=== PATIENT | female | born 1980 | race Caucasian/White ===

== ENCOUNTER → 2017-06-06 | Outpatient (REF) | payer OTHER ==
[~2017-06-06] MED LIST: DOCU10CA PO; IBUP80TA PO; PRENTAB40 PO
== END ==
LOC: M SFHCCLAY 07:27
PROVIDERS: ATTEND Family Medicine
DX: Z12.4 Encounter for screening for malignant neoplasm of cervix (principal)

== ENCOUNTER → 2017-07-06 | Outpatient (CLI) | payer OTHER ==
--- NOTE | 2017-07-06 10:05 | REP ---
Bilateral screening digital mammogram, baseline study: There are no palpable abnormalities or other breast complaints. The patient states she had a clinical breast exam in 05/2017. There are no comparisons. This is a baseline study. There is dense heterogeneous breast parenchyma. There is no dominant mass, microcalcific cluster, or architectural distortion that would indicate malignancy. Impression: There is no evidence of malignancy. BIRADS category 1 negative mammogram. The patient should have a repeat mammogram in 1 year. This mammogram was interpreted with the aid of an FDA-approved computer-aided detection system. A. Negative x-ray reports should not delay biopsy if a dominant or clinically suspicious mass is present. B. Not all breast cancers are identified by x-ray. C. Adenosis and dense breasts may obscure an underlying neoplasm. The patient letter being requested is M1 dense breasts.
== END ==
LOC: M WHC 08:02
PROVIDERS: ATTEND Family Medicine
DX: Z12.31 Encounter for screening mammogram for malignant neoplasm of breast (principal)

== ENCOUNTER → 2017-12-10 | Outpatient (REF) | payer OTHER ==
[2017-12-09 19:29] LABS: APPEARANCE, URINE TURBID (CLEAR); BACTERIA, URINE AUTO 3+ (NEGATIVE); BILIRUBIN, URINE AUTO NEGATIVE (NEGATIVE); BLOOD, URINE BLOOD 2+ (NEGATIVE); COLOR, URINE YELLOW (YELLOW); GLUCOSE, URINE (UA) AUTO NEGATIVE (NEGATIVE); KETONE, URINE AUTO NEGATIVE (NEGATIVE); LEUKOCYTE ESTERASE, URINE AUTO 2+ (NEGATIVE); MUCUS, URINE SMALL (NEGATIVE); NITRITE, URINE AUTO NEGATIVE (NEGATIVE); PROTEIN, URINE AUTO 1+ mg/dL (NEGATIVE); RBC, URINE AUTO 34 /HPF (0-3); SQUAMOUS EPITHELIAL CELL UR AU 3 /HPF (0-6); UROBILINOGEN, URINE AUTO 0.2 mg/dL (0.0-2.0); WBC, URINE AUTO TNTC /HPF (0-3)
== END ==
LOC: M LAB REF 09:09
DX: N39.0 Urinary tract infection, site not specified (principal)
CPT/HCPCS: 81001

== ENCOUNTER 2018-09-20 09:29 | Emergency (ER) | payer OTHER ==
[~2018-09-20] VITALS: Ht 172.7 cm; Wt 66.9 kg
[2018-09-20 11:36] LABS: BASO % 0.3 % (0.0-1.0); EOS % 0.2 % (0.0-3.0); HEMATOCRIT 39.4 % (36.0-47.0); HEMOGLOBIN 13.4 g/dl (12.0-15.5); LYMPH # 1.2 10^3/uL (1.5-4.5); LYMPH % 12.5 % (24.0-44.0); MEAN CORPUSCULAR HEMOGLOBIN 30.3 pg (27.0-33.0); MEAN CORPUSCULAR VOLUME 89.1 fl (80.0-96.0); MONO # 0.5 10^3/uL (0.0-0.8); MONO % 4.8 % (0.0-5.0); NEUTROPHILS % 81.6 % (36.0-66.0); PLATELET COUNT, AUTOMATED 293 10^3/uL (150-450); RED BLOOD COUNT 4.42 10^6/uL (4.00-5.40); WHITE BLOOD COUNT 9.8 10^3/uL (4.0-10.0)
[2018-09-20] MEDS ORDERED: RHOGAM 300 MCG (1500 IU) INJ (J2790) IM ONE (13:00)
[2018-09-20 13:14] LABS: CHLAMYDIA DNA AMPLIFICATION NEGATIVE (NEGATIVE); GC DNA AMPLIFICATION NEGATIVE (NEGATIVE)
[2018-09-20 13:42] VITALS: BP 115/68
--- NOTE | 2018-09-20 14:59 | REP ---
Emergency first trimester obstetric sonography: History: Vaginal bleeding. Findings: Transabdominal and transvaginal scanning are performed. An intrauterine sac is seen without identifiable yolk sac or embryonic pole. By mean sac size diameter of 7.7 mm this would correspond with a gestational age estimate 5 weeks 4 days. No evidence of free fluid in the cul-de-sac. Right ovary measures 2.0 x 1.4 x 2.8 cm. Left ovary measures 3.0 x 1.9 x 2.4 cm. In the left ovary there is a 1.8 x 2.5 x 1.7 cm hypoechoic cystic structure consistent with hemorrhagic cyst. Impression: Intrauterine gestational sac 7-sfiu-4-day size. No identifiable embryonic pole or yolk sac. This is nonspecific. Clinical and possibly sonographic followup is recommended. No free fluid or adnexal mass lesions seen. Electronically Signed by Ga Pennington MD 09/20/2018 05:23 P
== END 2018-09-20 13:59 | disposition home or self-care (01) ==
LOC: M ED 09:29
DX: O20.0 Threatened abortion (principal); Z3A.01 Less than 8 weeks gestation of pregnancy
CPT/HCPCS: 36415; 76801; 76817; 81001; 84702; 85025; 86850; 86900; 86901; 87210; 87491; 87591; 93976; 96372; 99284; J2790

== ENCOUNTER → 2018-09-22 | Outpatient (CLI) | payer OTHER | LOC: M LAB 11:30 | PROVIDERS: ATTEND Nurse Practitioner Family | DX: Z32.00 Encounter for pregnancy test, result unknown (principal) ==

== ENCOUNTER → 2018-10-01 | Outpatient (REF) | payer OTHER | LOC: M LABDRAWC 16:08 | PROVIDERS: ATTEND Obstetrics & Gynecology | DX: O03.9 Complete or unspecified spontaneous abortion without complication (principal) ==

== ENCOUNTER → 2018-10-09 | Outpatient (REF) | payer OTHER | LOC: M SFHCCLAY 08:19 | PROVIDERS: ATTEND Family Medicine | DX: F32.2 Major depressive disorder, single episode, severe without psychotic features (principal); F41.9 Anxiety disorder, unspecified; R00.2 Palpitations ==

== ENCOUNTER → 2018-11-15 | Outpatient (REF) | payer OTHER | LOC: M LABDRAWC 17:23 | PROVIDERS: ATTEND Obstetrics & Gynecology | DX: Z32.01 Encounter for pregnancy test, result positive (principal) ==

== ENCOUNTER → 2018-11-17 | Outpatient (CLI) | payer OTHER | LOC: M LRY 09:09 | PROVIDERS: ATTEND Obstetrics & Gynecology | DX: Z32.01 Encounter for pregnancy test, result positive (principal) ==

== ENCOUNTER 2018-11-30 17:59 | Emergency (ER) | payer OTHER ==
[~2018-11-30] VITALS: Ht 172.7 cm; Wt 65.9 kg
[2018-11-30 19:31] VITALS: BP 128/79
== END 2018-11-30 19:34 | disposition home or self-care (01) ==
LOC: M ED 17:59
DX: O26.851 Spotting complicating pregnancy, first trimester (principal); O30.91 Multiple gestation, unspecified, first trimester; O09.521 Supervision of elderly multigravida, first trimester; Z3A.01 Less than 8 weeks gestation of pregnancy; Z79.899 Other long term (current) drug therapy

== ENCOUNTER → 2018-12-06 | Outpatient (REF) | payer OTHER ==
[2018-12-06 18:22] LABS: BASO % 0.4 % (0.0-1.0); EOS % 0.2 % (0.0-3.0); HEMATOCRIT 40.1 % (36.0-47.0); HEMOGLOBIN 13.4 g/dl (12.0-15.5); LYMPH # 1.7 10^3/uL (1.5-4.5); LYMPH % 20.7 % (24.0-44.0); MEAN CORPUSCULAR HEMOGLOBIN 30.7 pg (27.0-33.0); MEAN CORPUSCULAR HGB CONC 33.4 g/dl (32.0-36.5); MONO # 0.5 10^3/uL (0.0-0.8); MONO % 5.9 % (0.0-5.0); NEUTROPHILS # 5.8 10^3/uL (1.8-7.7); NEUTROPHILS % 72.3 % (36.0-66.0); PLATELET COUNT, AUTOMATED 298 10^3/uL (150-450); RED BLOOD COUNT 4.36 10^6/uL (4.00-5.40); WHITE BLOOD COUNT 8.1 10^3/uL (4.0-10.0)
[2018-12-06 19:43] LABS: CHLAMYDIA DNA AMPLIFICATION NEGATIVE (NEGATIVE); GC DNA AMPLIFICATION NEGATIVE (NEGATIVE)
[2018-12-07 08:29] LABS: HEPATITIS C VIRUS ABY INDEX 0.1 INDEX (<0.8); HIV 1&2 SCREEN CENTAUR NEGATIVE (NEGATIVE); RUBELLA IgG QUALITATIVE IMMUNE (IMMUNE)
== END ==
LOC: M LABDRWCV 16:58
PROVIDERS: ATTEND Specialist
DX: Z3A.08 8 weeks gestation of pregnancy (principal); Z34.81 Encounter for supervision of other normal pregnancy, first trimester

== ENCOUNTER 2019-02-09 11:04 | Emergency (ER) | payer OTHER ==
[~2019-02-09] VITALS: Ht 172.7 cm; Wt 72.3 kg
[2019-02-09 13:49] VITALS: BP 127/80
--- NOTE | 2019-02-09 13:51 | REP ---
OB ULTRASOUND: Real-time sonographic evaluation of the gravid uterus is performed utilizing transabdominal and endovaginal technique. There is a single living intrauterine gestation. The estimated gestational age is 17 weeks 3 days. EDC 07/17/2019. Today's measurements indicate appropriate growth. BPD 37 mm = 17 weeks 2 days, 46th percentile HC 132 mm 16 weeks 5 days, 26th percentile. AC 120 mm 17 weeks 5 days, 58th percentile. FL 22 mm 16 weeks 3 days, 19th percentile. HC/AC ratio 1.10 within normal range. Estimated weight 180 grams, 33rd percentile. heart rate 157 beats per minute. SEEN/GROSSLY UNREMARKABLE Lateral ventricles Yes Posterior fossa Yes Upper lip Yes Four-chamber heart Yes LVOT Yes RVOT Yes Stomach Yes Cord insertion No Three vessel cord Yes Kidneys No Bladder Yes Spine No position: Variable. Placenta: Anterior and grade 0 with no abruption. There does appear to be complete placenta previa. Amniotic fluid: Within normal limits. Cervix is closed and measures 4.7 cm in length. No maternal adnexal region abnormality is seen. Patient reports that this was a documented twin , but only one fetus has developed by today's exam. There appears to be residual sac from the undeveloped twin on the right. Electronically Signed by Prashant Reis MD 02/09/2019 07:38 P
== END 2019-02-09 13:50 | disposition home or self-care (01) ==
LOC: M ED 11:04
DX: O44.02 Complete placenta previa NOS or without hemorrhage, second trimester (principal); Z3A.17 17 weeks gestation of pregnancy

== ENCOUNTER → 2019-03-21 | Outpatient (CLI) | payer OTHER ==
--- NOTE | 2019-03-25 13:06 | REP ---
Clinical: Anatomical evaluation. Comparison: 02/09/2019 . Findings: Examination demonstrates a single live intrauterine in cephalic presentation. motion is identified by technologist. Placenta is noted anterior and grade zero without evidence for placenta previa or abruption. Amniotic fluid volume is normal. Cervix measures 4.6 cm in length and appears closed. No evidence for nuchal cord. Gestational age by LMP 23 weeks 1 day with DHRUV 07/17/2019 . Gestational age by current measurements 23 weeks 6 days with DHRUV 07/12/2019 . FHR equals 163 beats per minute. Estimated weight 612 grams ( 61st percentile). Anatomical assessment demonstrates normal structures including cranium, choroid plexus, cavum, cerebellum/posterior fossa, facial features, lungs, four-chamber heart/ventricular outflow tracts, diaphragm, stomach, cord insertion/three-vessel cord, bladder, spine, and extremities. Moderate bilateral hydronephrosis is appreciated. The right renal pelvis measures 7.9 mm diameter and the left renal pelvis measures 9.1 mm diameter. Impression: 1. Single live intrauterine in cephalic presentation demonstrating appropriate interval growth. 2. Moderate bilateral hydronephrosis. Remainder of the anatomical assessment appears normal. Electronically Signed by Tesfaye Wilder MD 03/25/2019 12:58 P
== END ==
LOC: M RAD 10:09
PROVIDERS: ATTEND Specialist
DX: O09.522 Supervision of elderly multigravida, second trimester (principal); Z3A.23 23 weeks gestation of pregnancy; Z36.9 Encounter for antenatal screening, unspecified

== ENCOUNTER → 2019-05-03 | Outpatient (CLI) | payer OTHER ==
[2019-05-03 10:51] LABS: BASO % 0.3 % (0.0-1.0); EOS % 0.4 % (0.0-3.0); HEMATOCRIT 37.4 % (36.0-47.0); HEMOGLOBIN 12.6 g/dl (12.0-15.5); LYMPH # 1.2 10^3/uL (1.5-5.0); LYMPH % 13.4 % (24.0-44.0); MEAN CORPUSCULAR HEMOGLOBIN 31.3 pg (27.0-33.0); MEAN CORPUSCULAR HGB CONC 33.7 g/dl (32.0-36.5); MONO # 0.4 10^3/uL (0.0-0.8); MONO % 4.6 % (0.0-5.0); NEUTROPHILS # 7.4 10^3/uL (1.5-8.5); NEUTROPHILS % 79.9 % (36.0-66.0); PLATELET COUNT, AUTOMATED 234 10^3/uL (150-450); RED BLOOD COUNT 4.02 10^6/uL (4.00-5.40); WHITE BLOOD COUNT 9.2 10^3/uL (4.0-10.0)
== END ==
LOC: M LAB 08:59
PROVIDERS: ATTEND Specialist
DX: O09.512 Supervision of elderly primigravida, second trimester (principal)

== ENCOUNTER → 2019-05-23 | Outpatient (CLI) | payer OTHER ==
[~2019-05-23] MED LIST changes: +ACET-683 PO; +PRIL20TA2 PO
--- NOTE | 2019-05-24 02:50 | REP ---
Clinical: Anatomical evaluation. Comparison: 03/21/2019 . Findings: Examination demonstrates a single live intrauterine in cephalic presentation. motion is identified by technologist. Placenta is noted anterior and grade one without evidence for placenta previa or abruption. Amniotic fluid volume is normal. Cervix measures 3.3 cm in length and appears closed. Nuchal cord cannot be excluded. Gestational age by LMP 32 weeks 1 day with DHRUV 07/17/2019 . Gestational age by current measurements 32 weeks 6 days with DHRUV is 07/12/2019 . FHR equals 156 beats per minute. Amniotic fluid index: 16.4 cm (8.6 - 24.2) Umbilical cord SD ratio: 2.51 (2.45 - 3.45). Estimated weight 2244 grams ( 76th percentile). Kidneys demonstrate mild bilateral hydronephrosis. The right renal pelvis measures 11 mm in width while the left renal pelvis measures 10 mm in width. Remainder of the anatomical assessment is grossly unremarkable. Bladder appears normal. Impression: 1. Single live advanced gestation in cephalic presentation. Nuchal cord cannot be excluded. 2. Mild/early hydronephrosis warrants reevaluation and follow-up. Electronically Signed by Tesfaye Wilder MD 05/24/2019 02:42 A
== END ==
LOC: M RAD 16:56
PROVIDERS: ATTEND Specialist
DX: Z34.82 Encounter for supervision of other normal pregnancy, second trimester (principal)

== ENCOUNTER 2019-05-25 11:39 | Outpatient (CLI) | payer OTHER ==
[~2019-05-25] VITALS: Ht 172.7 cm; Wt 82.0 kg
[~2019-05-25 11:39] MED LIST changes: -ACET-683 PO; -PRIL20TA2 PO
[2019-05-25 12:03] VITALS: BP 119/71
[2019-05-25] MEDS ORDERED: ACET-683 PO (12:15)
[2019-05-25] MEDS ORDERED: PRIL20TA2 PO (12:15)
[2019-05-25] MEDS ORDERED: LACTATED RINGER'S 1000 ML IV STA (12:23)
[2019-05-25] MEDS ORDERED: FIORICET TAB PO ONE (12:45)
[2019-05-25 13:56] VITALS: BP 116/61
[2019-05-25 15:11] VITALS: BP 112/59
== END 2019-05-25 16:23 | disposition home or self-care (01) ==
LOC: M LDO 11:39
PROVIDERS: ATTEND Obstetrics & Gynecology
DX: O26.893 Other specified pregnancy related conditions, third trimester (principal); R42 Dizziness and giddiness; O36.8193 Decreased fetal movements, unspecified trimester, fetus 3; Z3A.31 31 weeks gestation of pregnancy

== ENCOUNTER → 2019-07-02 | Outpatient (CLI) | payer OTHER ==
[~2019-07-02] MED LIST changes: +ACET-683 PO; +PRIL20TA2 PO
--- NOTE | 2019-07-03 05:07 | REP ---
Clinical: Anatomical evaluation. Comparison: 05/23/2019 . Findings: Examination demonstrates a single live intrauterine in cephalic presentation. motion is identified by technologist. Placenta is noted anterior and grade zero without evidence for placenta previa or abruption. Amniotic fluid volume is normal. Cervix measures 3.2 cm in length and appears closed. No evidence for nuchal cord. Gestational age by LMP 37 weeks 6 days with DHRUV 07/17/2019 . Gestational age by current measurements 37 weeks 6 days with DHRUV 07/17/2019 . FHR equals 139 beats per minute. Biophysical profile score: 8/8 Estimated weight 3667 grams ( 76 percentile). Amniotic fluid index: 14.7 cm Umbilical cord SD ratio: 2.30 Anatomical assessment again demonstrates mild bilateral hydronephrosis. The right renal pelvis measures 1.7 cm. The left renal pelvis measures 1.3 cm Impression: Biophysical profile score normal. Mild bilateral renal hydronephrosis again noted. Electronically Signed by Tesfaye Wilder MD 07/03/2019 04:59 A
== END ==
LOC: M RAD 14:13
PROVIDERS: ATTEND Obstetrics & Gynecology
DX: Z34.82 Encounter for supervision of other normal pregnancy, second trimester (principal)

== ENCOUNTER → 2019-07-02 | Outpatient (REF) | payer OTHER | LOC: M LAB REF 17:06 | PROVIDERS: ATTEND Specialist | DX: O09.523 Supervision of elderly multigravida, third trimester (principal); Z3A.00 Weeks of gestation of pregnancy not specified ==

== ENCOUNTER 2019-07-10 12:50 | Inpatient (IN) | payer OTHER ==
[~2019-07-10] VITALS: Ht 172.7 cm; Wt 85.5 kg
[2019-07-10] MEDS ORDERED: LR 1,000 ML IV SCH ×2 (12:55→19:30)
[2019-07-10] MEDS ORDERED: LACTATED RINGER'S 1000 ML IV ONE (13:00)
[2019-07-10] MEDS ORDERED: ceFAZolin SOD 2 GM in IV 1 EA IV ONE (13:00)
[2019-07-10] MEDS ORDERED: BICITRA 30ML SOLN UDC PO ONE (13:00)
[2019-07-10] MEDS ORDERED: FIORCAP3 PO (13:12)
[2019-07-10 13:21] VITALS: BP 139/77
[2019-07-10 14:18] LABS: HEMATOCRIT 39.5 % (36.0-47.0); HEMOGLOBIN 13.2 g/dl (12.0-15.5); MEAN CORPUSCULAR HEMOGLOBIN 31.4 pg (27.0-33.0); MEAN CORPUSCULAR HGB CONC 33.4 g/dl (32.0-36.5); MEAN CORPUSCULAR VOLUME 93.8 fl (80.0-96.0); PLATELET COUNT, AUTOMATED 224 10^3/uL (150-450); RED BLOOD COUNT 4.21 10^6/uL (4.00-5.40); WHITE BLOOD COUNT 8.6 10^3/uL (4.0-10.0)
[2019-07-10 14:35] LABS: TOTAL PROTEIN,RANDOM URINE 38.1 MG/DL (0.0-12.0)
[2019-07-10 14:39] LABS: ALT/SGPT 13 U/L (12-78); BILIRUBIN,TOTAL 0.5 MG/DL (0.2-1.0); CREATININE FOR GFR 0.69 MG/DL (0.55-1.30); GLOMERULAR FILTRATION RATE > 60.0 (>60); LDH LACTATE DEHYDROGENASE 120 U/L (84-246); URIC ACID 5.6 MG/DL (2.6-6.0)
--- NOTE | 2019-07-10 15:13 | HPE ---
DATE OF ADMISSION: 07/10/2019 This is a 38-year-old, 3, para 1-0-1-1, at 37-4/7 weeks gestation, estimated date of confinement (EDC) of 07/27/2019 based on first trimester ultrasound presented to labor and delivery following a visit in the office where she had complained of severe headache times 3 days unresolved with the Fioricet hydration and nutrition as well as rest. She reports decreased movement and decreased urinary output. She denies vaginal bleeding and leakage of fluid. care was initiated at [facility] in the first trimester. course complicated by prior section, advanced maternal age, mitral valve prolapse where she had an echo that was performed on December of 2018 that was unchanged, and bilateral hydronephrosis. Today's presentation of gestational hypertension. OBSTETRICAL HISTORY: April 2014, 38 weeks gestation, she underwent a primary section due to severe anxiety and paroxysmal tachycardia. August 2018, spontaneous miscarriage. OBSTETRIC LABS: O negative. Initial antibody was positive for anti-D, rubella immune, [facility] ([facility]) nonreactive. Urine culture no growth. Hepatitis B surface antigen negative. HIV negative. Hepatitis C antibody nonreactive. Gonorrhea and chlamydia negative. It does not appear that she had genetic labs for triploidy performed. Gestational diabetic screening normal at 95. Third trimester hemoglobin 12.6, hematocrit 37.4. Group B streptococcus (GBS) is negative. PAST MEDICAL HISTORY: 1. Seasonal allergies. 2. Anxiety. 3. Childhood varicella. SURGERIES: Prior section. FAMILY HISTORY: Diabetes. SOCIAL HISTORY: The patient is single, however, the father of the baby is at bedside. She is a nonsmoker. She denies alcohol and drug use. No history of sexually transmitted infections and denies history of abuse physical, sexual and emotional. ALLERGIES: NO DRUG ALLERGIES. CURRENT MEDICATIONS: - 50/325 - omeprazole 40 mg - Zofran 4 mg - vitamin OBJECTIVE: In the office, she was noted to have elevated blood pressures 2 days in row in the 140s/80s. Vital signs upon arrival to labor delivery, temperature 98.5, pulse 79, respirations 18, blood pressure (BP) 139/77. She is 98% on room air pulse ox. heart rate is 140 with moderate variability, positive accelerations, no decelerations. Contractions every 4-6 minutes. Pre-eclamptic labs have been returned. She has a hemoglobin of 13.2, hematocrit 39.5, platelets 224. Her AST is 12, ALT 13, LDH 120, uric acid 5.6. Her spot urine for protein is 0.27. ASSESSMENT: Intrauterine at 37-4/7 weeks, heart rate is category 1, gestational hypertension. PLAN: Per consult with Dr. Paula, admit the patient to labor and delivery, plan for repeat section with bilateral tubal ligation as prior planned for 39 weeks. The patient has been consented for surgery and blood products if necessary. IV access planned for prophylactic surgical antibiotics. Risks, benefits, and alternatives have been reviewed and the patient and her 's questions have been answered.
[2019-07-10 15:49] VITALS: BP 131/63
[2019-07-10] MEDS ORDERED: MORPHINE PRES-FREE INJ 10 MG/10 ML VIAL (J2274) As Ordered ONE (17:00)
[2019-07-10] MEDS ORDERED: ONDANSETRON 4MG/2ML VIAL (J2405) IV PRN ×3 (17:42→19:30)
[2019-07-10] MEDS ORDERED: NALBUPHINE HCL 10 MG/ML AMP (J2300) IV PRN ×2 (17:42→19:30)
[2019-07-10] MEDS ORDERED: NALOXONE INJ 0.4 MG/1 ML VIAL (J2310) IV PRN ×2 (17:42)
[2019-07-10] MEDS ORDERED: diphenhydrAMINE INJ 50MG/ML VIAL (J1200) IV PRN (17:42)
[2019-07-10] MEDS ORDERED: METOCLOPRAMIDE INJ 10MG/2ML VIAL (J2765) IV PRN ×2 (17:42→19:30)
[2019-07-10] MEDS ORDERED: ONDANSETRON 4MG/2ML VIAL (J2405) As Ordered ONE (17:51)
[2019-07-10] MEDS ORDERED: OXYTOCIN INJ 10 UNITS/ML VIAL (J2590) As Ordered ONE (17:52)
[2019-07-10] MEDS ORDERED: KETOROLAC 60 MG/2 ML VIAL (J1885) As Ordered ONE (17:52)
[2019-07-10] MEDS ORDERED: OXYTOCIN DRIP 30 UNITS in IV 1 EA IV SCH (19:01)
[2019-07-10] MEDS ORDERED: OXYC1TAB23 PO (19:06)
[2019-07-10] MEDS ORDERED: IBUP80TA PO (19:07)
[2019-07-10] MEDS ORDERED: DOCU100C16 PO (19:07)
[2019-07-10] MEDS ORDERED: RHOGAM 300 MCG (1500 IU) INJ (J2790) IM SCH (19:15)
[2019-07-10] MEDS ORDERED: MEASLES,MUMPS,RUBELLA VACCINE INJ (MMR-II) (90707) SC SCH (19:15)
[2019-07-10] MEDS ORDERED: PROMETHAZINE 25 MG TAB PO PRN (19:15)
[2019-07-10] MEDS ORDERED: ACETAMINOPHEN 500 MG TAB PO PRN (19:15)
[2019-07-10] MEDS ORDERED: PERCOCET 5MG/325MG TAB PO PRN ×2 (19:15→19:30)
[2019-07-10] MEDS ORDERED: OXYTOCIN 30 UNITS IN 0.9% NaCl 500ML IV BAG (J2590) As Ordered ONE (19:18)
[2019-07-10] MEDS ORDERED: KETOROLAC 30 MG/ML VIAL (J1885) IV PRN (19:30)
[2019-07-10] MEDS ORDERED: fentaNYL 100 MCG/2 ML INJECTION (J3010) IV PRN (19:30)
[2019-07-10] MEDS: LR 1,000 ML IV SCH (19:59)
[2019-07-10] MEDS: DOCUSATE SODIUM 100 MG CAP PO SCH (21:00)
[2019-07-10 21:03] VITALS: BP 111/66
[2019-07-10 21:30] VITALS: BP 120/61
[2019-07-10 23:30] VITALS: BP 129/59
[2019-07-11] VITALS (7 sets, daily range): BP systolic 110–128; BP diastolic 53–78
[2019-07-11] MEDS ORDERED: KETOROLAC 30 MG/ML VIAL (J1885) IV SCH
[2019-07-11] MEDS: LR 1,000 ML IV SCH ×2 (03:01→21:30)
[2019-07-11] MEDS: KETOROLAC 30 MG/ML VIAL (J1885) IV SCH ×3 (06:09→17:52)
[2019-07-11 07:19] LABS: HEMOGLOBIN 11.5 g/dl (12.0-15.5); MEAN CORPUSCULAR HEMOGLOBIN 31.9 pg (27.0-33.0); MEAN CORPUSCULAR HGB CONC 33.8 g/dl (32.0-36.5); MEAN CORPUSCULAR VOLUME 94.2 fl (80.0-96.0); PLATELET COUNT, AUTOMATED 173 10^3/uL (150-450); RED BLOOD COUNT 3.61 10^6/uL (4.00-5.40); WHITE BLOOD COUNT 9.4 10^3/uL (4.0-10.0)
[2019-07-11] MEDS: PRENATAL VITAMINS CHEWABLE TABLET PO SCH (10:18)
[2019-07-11] MEDS: DOCUSATE SODIUM 100 MG CAP PO SCH ×2 (10:18→21:31)
[2019-07-12] MEDS: IBUPROFEN 800 MG TAB PO SCH ×2 (02:12→10:12)
[2019-07-12 02:27] VITALS: BP 118/67
[2019-07-12 06:20] VITALS: BP 111/65
[2019-07-12] MEDS: PRENATAL VITAMINS CHEWABLE TABLET PO SCH (10:11)
[2019-07-12] MEDS: DOCUSATE SODIUM 100 MG CAP PO SCH (10:11)
== END 2019-07-12 14:30 | disposition home or self-care (01) | DRG 540 ==
LOC: M LDI 12:50 → M OBS 20:51
PROVIDERS: ADMIT Obstetrics & Gynecology; ATTEND Obstetrics & Gynecology
PROC: 0UB70ZZ Excision of Bilateral Fallopian Tubes, Open Approach (ICD-10-PCS; 2019-07-10)
PROC: 10D00Z1 Extraction of Products of Conception, Low, Open Approach (ICD-10-PCS; principal; 2019-07-10 19:04)
DX: O13.4 Gestational [pregnancy-induced] hypertension without significant proteinuria, complicating childbirth (principal); O34.211 Maternal care for low transverse scar from previous cesarean delivery; Z3A.37 37 weeks gestation of pregnancy; Z30.2 Encounter for sterilization; Z37.0 Single live birth

== ENCOUNTER → 2019-11-12 | Outpatient (REF) | payer OTHER, MEDICAID ==
[~2019-11-12] MED LIST changes: +DOCU100C16 PO; +FIORCAP3 PO; +OXYC1TAB23 PO
== END ==
LOC: M SFHCCLAY 07:05
PROVIDERS: ATTEND Family Medicine
DX: F32.9 Major depressive disorder, single episode, unspecified (principal); F41.9 Anxiety disorder, unspecified; R00.2 Palpitations

== ENCOUNTER 2020-05-06 09:31 | Emergency (ER) | payer MEDICAID, OTHER ==
[~2020-05-06] VITALS: Ht 172.7 cm; Wt 63.6 kg
[2020-05-06] MEDS ORDERED: NS 1,000 ML IV SCH (09:54)
[2020-05-06] MEDS ORDERED: GI COCKTAIL 50ML BTL(HYOSCYAMINE/MAALOX/LIDOCAINE VISCOUS)(1:3:1) PO ONE (10:00)
[2020-05-06 10:26] LABS: BASO % 0.2 % (0.0-1.0); EOS % 0.1 % (0.0-3.0); HEMATOCRIT 37.5 % (36.0-47.0); HEMOGLOBIN 12.7 g/dl (12.0-15.5); LYMPH # 0.7 10^3/uL (1.5-5.0); LYMPH % 3.5 % (24.0-44.0); MEAN CORPUSCULAR HEMOGLOBIN 30.5 pg (27.0-33.0); MEAN CORPUSCULAR HGB CONC 33.9 g/dl (32.0-36.5); MEAN CORPUSCULAR VOLUME 90.1 fl (80.0-96.0); MONO # 0.5 10^3/uL (0.0-0.8); MONO % 2.4 % (0.0-5.0); NEUTROPHILS # 17.8 10^3/uL (1.5-8.5); NEUTROPHILS % 92.9 % (36.0-66.0); PLATELET COUNT, AUTOMATED 313 10^3/uL (150-450); RED BLOOD COUNT 4.16 10^6/uL (4.00-5.40); WHITE BLOOD COUNT 19.1 10^3/uL (4.0-10.0)
[2020-05-06] MEDS ORDERED: KETOROLAC 30 MG/ML 1ML VIAL IV ONE (10:45)
[2020-05-06 10:46] LABS: ALT/SGPT 17 U/L (12-78); BILIRUBIN,DIRECT 0.1 MG/DL (0.0-0.2); BILIRUBIN,TOTAL 0.5 MG/DL (0.2-1.0); BLOOD UREA NITROGEN 14 MG/DL (7-18); CARBON DIOXIDE LEVEL 26 MEQ/L (21-32); CHLORIDE LEVEL 105 MEQ/L (98-107); CREATININE FOR GFR 0.74 MG/DL (0.55-1.30); GLOMERULAR FILTRATION RATE > 60.0 (>60); GLUCOSE, FASTING 115 MG/DL (70-100); LIPASE 65 U/L (73-393); POTASSIUM SERUM 3.8 MEQ/L (3.5-5.1); SODIUM LEVEL 137 MEQ/L (136-145); TOTAL PROTEIN 7.2 GM/DL (6.4-8.2)
[2020-05-06] MEDS ORDERED: ISOVUE-370 76% 100ML VIAL As Ordered ONE (11:10)
--- NOTE | 2020-05-06 11:47 | REPVR ---
PROCEDURE INFORMATION: Exam: CT Abdomen And Pelvis With Contrast Exam date and time: 05/06/2020 11:21 AM Age: 39 years old Clinical indication: Abdominal pain; Generalized; Additional info: Abd pain TECHNIQUE: Imaging protocol: Computed tomography of the abdomen and pelvis with intravenous contrast. Radiation optimization: All CT scans at this facility use at least one of these dose optimization techniques: automated exposure control; mA and/or kV adjustment per patient size (includes targeted exams where dose is matched to clinical indication); or iterative reconstruction. Contrast material: ISOVUE 370; Contrast volume: 100 ml; Contrast route: INTRAVENOUS (IV); COMPARISON: US OBS FOLL UP OR REPEAT EACH GES 07/02/2019 2:19 PM FINDINGS: Liver: Subtle hyperenhancing 9 mm x 9 mm lesion in the left hepatic lobe. Gallbladder and bile ducts: Normal. No calcified stones. No ductal dilation. Pancreas: Normal. No ductal dilation. Spleen: Normal. No splenomegaly. Adrenals: Normal. No mass. Kidneys and ureters: Mild right renal cortical scarring. Mild right-sided hydroureteronephrosis secondary to an obstructing 2 mm x 2 mm right UVJ calculus. 8 mm right renal cortical hypodensity. 9 mm right renal cortical hypodensity, containing a punctate calcification. These are too small to definitively characterize, but likely represent cysts or calyceal diverticula. Stomach and bowel: Colonic diverticulosis. No evidence of acute diverticulitis. The majority of the colon is nondistended. There appears to be mild diffuse colonic wall thickening. Appendix: No evidence of appendicitis. Intraperitoneal space: Unremarkable. No free air. No significant fluid collection. Vasculature: Unremarkable. No abdominal aortic aneurysm. Lymph nodes: Unremarkable. No enlarged lymph nodes. Bladder: Unremarkable as visualized. Reproductive: Uterus is retroverted and retroflexed. Bones/joints: Unremarkable. No acute fracture. Soft tissues: Incidental umbilical piercing. IMPRESSION: 1. Mild right-sided hydroureteronephrosis secondary to an obstructing 2 mm x 2 mm right UVJ calculus. 2. Subtle hyperenhancing 9 mm left hepatic lobe lesion. This most likely represents an FNH or flash fill hemangioma. Recommend further evaluation with nonemergent multiphasic liver MRI. 3. Mild colitis. 4. Colonic diverticulosis. 5. Mild right renal cortical scarring. Electronically signed by: Ela Loo On 05/06/2020 11:47:08 AM
[2020-05-06] MEDS ORDERED: cefTRIAXone SOD 2 GM in D5W MINI-BAG PLUS 50 ML IV ONE (12:15)
--- NOTE | 2020-05-06 12:58 | ED PDOC ---
Post-Departure Follow-Up dr adler faxed formal report of ct abd/p for fu Ismael Blount MD May 06, 2020 12:57
[2020-05-06 13:15] VITALS: BP 113/56
[2020-05-06] MEDS ORDERED: CIPR-249 PO (13:16)
[2020-05-06] MEDS ORDERED: KETO10TAB PO (13:16)
--- NOTE | 2020-05-17 13:53 | ECGEPIP ---
[facility] - ED Test Date: 2020-05-06 Pat Name: JENNI SUE Department: Room: - Gender: Female [employer]: : 1980 Requested By: Twyla Moncada Order Number: [id number] Reading MD: Twyla Moncada Measurements Intervals [place] Rate: 57 P: 10 SC: 180 QRS: -4 QRSD: 93 T: 70 QT: 483 QTc: 471 Interpretive Statements SINUS BRADYCARDIA POSSIBLE LEFT ATRIAL ENLARGEMENT PROLONGED QT INTERVAL Electronically Signed on 05-17-2020 13:53:13 EDT by Twyla Moncada
== END 2020-05-06 13:41 | disposition home or self-care (01) ==
LOC: M ED 09:31 → EDBD 09:31 → M ED 13:41
DX: N20.1 Calculus of ureter (principal); N39.0 Urinary tract infection, site not specified; K76.89 Other specified diseases of liver; R00.1 Bradycardia, unspecified; K57.30 Diverticulosis of large intestine without perforation or abscess without bleeding
CPT/HCPCS: 74177; 80047; 80048; 80076; 81001; 83690; 84702; 85025; 87088; 87186; 93005; 96365; 96375; 99284; J0696; J1885; Q9967

== ENCOUNTER → 2020-05-21 | Outpatient (REF) | payer OTHER, MEDICAID ==
[~2020-05-21] MED LIST changes: +CIPR-249 PO; +KETO10TAB PO
[2020-05-21 13:01] LABS: APPEARANCE, URINE HAZY (CLEAR); BACTERIA, URINE AUTO NEGATIVE (NEGATIVE); BILIRUBIN, URINE AUTO NEGATIVE (NEGATIVE); BLOOD, URINE BLOOD 2+ (NEGATIVE); COLOR, URINE YELLOW (YELLOW); GLUCOSE, URINE (UA) AUTO NEGATIVE (NEGATIVE); KETONE, URINE AUTO NEGATIVE (NEGATIVE); LEUKOCYTE ESTERASE, URINE AUTO NEGATIVE (NEGATIVE); MUCUS, URINE SMALL (NEGATIVE); NITRITE, URINE AUTO NEGATIVE (NEGATIVE); PROTEIN, URINE AUTO NEGATIVE (NEGATIVE); RBC, URINE AUTO 3 /HPF (0-3); SPECIFIC GRAVITY URINE AUTO 1.018 (1.002-1.035); SQUAMOUS EPITHELIAL CELL UR AU 2 /HPF (0-6); UROBILINOGEN, URINE AUTO 0.2 mg/dL (0.0-2.0); WBC, URINE AUTO 9 /HPF (0-3)
== END ==
LOC: M SMT 11:26
PROVIDERS: ATTEND Nurse Practitioner Women's Health
DX: N20.0 Calculus of kidney (principal); N39.0 Urinary tract infection, site not specified

== ENCOUNTER → 2020-06-02 | Outpatient (CLI) | payer OTHER ==
[~2020-06-02] MED LIST changes: +PROHANCE 279.3MG/ML 15ML VIAL As Ordered ONE
--- NOTE | 2020-06-08 14:56 | REP ---
MRI ABDOMEN WITH AND WITHOUT CONTRAST: 06/02/20 HISTORY: Liver lesion on CT 05/06/20 TECHNIQUE: Multiple sequences obtained in the axial and coronal planes prior to and following the intravenous administration of 12ml ProHance. On pre-contrast images of the liver, no significant signal abnormality is seen. There is mild hepatomegaly, the length of the liver is about 19.2cm. On post- contrast images of the liver a small enhancing nodule is again seen in the left lobe laterally measuring 1cm in diameter. This is only seen in the arterial phase of post-contrast imaging and there is subsequent washout to an isointense appearance compared to the remainder of the liver parenchyma. No other liver mass is seen. The gallbladder is grossly unremarkable. There is no biliary dilatation. Spleen is normal in size with no intrinsic abnormality. The adrenal glands are normal. No pancreatic mass is seen. Left kidney is normal. The right kidney demonstrates focal lateral cortical scarring in the upper pole. There is a cyst measuring 9mm in diameter in the posterior lower pole of the right kidney. The previously noted hydronephrosis seen on the CT of 05/06/20 has resolved. There do appear to be a few ill-defined areas of decreased enhancement in the right kidney which may indicate some degree of pyelonephritis. No suspicious enhancing mass is seen. There is no adenopathy or free fluid in the abdomen. IMPRESSION: 1. As seen on the CT of 05/06/20 there is a 1cm enhancing nodule in the arterial phase of post-contrast imaging, which rapidly washes out of an isointense appearance on the more delayed post-contrast images. This 1cm enhancing nodule is not seen on the prior CT of 06/15/05. I suspect this represents a small flash filling hemangioma or adenoma. Given the patients age I would favor these benign ideologies. Benign ideologies would particularly be favored is the patient has no risk factors for hepatic disease or cancer. If there is a question of increased risk for hepatic disease or cancer, then a follow-up MRI may be obtained in 6-12 months. 2. The right kidney demonstrates resolution of the recently noted hydronephrosis. There is a small cortical scar in the upper pole and a small cyst in the lower pole. There are ill-defined areas of decreased enhancement scattered throughout the right kidney which may indicate some degree of pyelonephritis. [facility]
== END ==
LOC: M RAD 10:08
PROVIDERS: ATTEND Family Medicine
DX: K76.89 Other specified diseases of liver (principal); N28.1 Cyst of kidney, acquired
CPT/HCPCS: 74183; A9576

== ENCOUNTER → 2020-09-03 | Outpatient (REF) | payer OTHER, MEDICAID ==
[~2020-09-03] MED LIST changes: -PROHANCE 279.3MG/ML 15ML VIAL As Ordered ONE
== END ==
LOC: M SFHCWAGY 10:13
PROVIDERS: ATTEND Advanced Practice Midwife
DX: Z12.4 Encounter for screening for malignant neoplasm of cervix (principal); Z77.9 Other contact with and (suspected) exposures hazardous to health; R87.610 Atypical squamous cells of undetermined significance on cytologic smear of cervix (ASC-US)

== ENCOUNTER → 2020-09-09 | Outpatient (REF) | payer OTHER, MEDICAID ==
[2020-09-09 13:01] LABS: HEMATOCRIT 40.4 % (36.0-47.0); HEMOGLOBIN 13.3 g/dl (12.0-15.5); MEAN CORPUSCULAR HEMOGLOBIN 29.3 pg (27.0-33.0); MEAN CORPUSCULAR HGB CONC 32.9 g/dl (32.0-36.5); PLATELET COUNT, AUTOMATED 286 10^3/uL (150-450); RED BLOOD COUNT 4.54 10^6/uL (4.00-5.40); WHITE BLOOD COUNT 6.4 10^3/uL (4.0-10.0)
[2020-09-09 13:27] LABS: HCG, SERUM QUALITATIVE NEGATIVE (NEGATIVE)
[2020-09-09 13:30] LABS: ALBUMIN 4.5 GM/DL (3.2-5.2); ALT/SGPT 23 U/L (12-78); BILIRUBIN,TOTAL 0.6 MG/DL (0.2-1.0); BLOOD UREA NITROGEN 17 MG/DL (7-18); CALCIUM LEVEL 9.3 MG/DL (8.5-10.1); CARBON DIOXIDE LEVEL 26 MEQ/L (21-32); CHLORIDE LEVEL 104 MEQ/L (98-107); CREATININE FOR GFR 0.79 MG/DL (0.55-1.30); FREE T4 0.95 NG/DL (0.76-1.46); GLOMERULAR FILTRATION RATE > 60.0 (>60); GLUCOSE, FASTING 97 MG/DL (70-100); POTASSIUM SERUM 4.1 MEQ/L (3.5-5.1); SODIUM LEVEL 136 MEQ/L (136-145); TOTAL PROTEIN 7.7 GM/DL (6.4-8.2)
== END ==
LOC: M LABDRAWC 11:40
PROVIDERS: ATTEND Advanced Practice Midwife
DX: N92.1 Excessive and frequent menstruation with irregular cycle (principal)

== ENCOUNTER → 2020-09-18 | Outpatient (REF) | payer OTHER, MEDICAID | LOC: M SFHCPLAZ 17:29 | PROVIDERS: ATTEND Advanced Practice Midwife | DX: N93.9 Abnormal uterine and vaginal bleeding, unspecified (principal) ==

== ENCOUNTER → 2020-10-02 | Outpatient (CLI) | payer OTHER ==
--- NOTE | 2020-10-03 04:37 | REP ---
INDICATION: N92.1 EXCESS MENSES COMPARISON: None. TECHNIQUE: Transabdominal pelvic ultrasound followed by transvaginal examination for better evaluation of the endometrium and adnexa with color Doppler evaluation of the ovaries. FINDINGS: Bladder is collapsed. Retroverted uterus measures 9.4 x 4.9 x 5.9. The endometrial complex measures 7.5 mm thickness. The cervix appears mildly thickened and a small amount of endocervical fluid is identified which is otherwise nonspecific in appearance. Bilateral ovaries are normal in appearance and vascularity without evidence for torsion. Right ovary measures 1.5 x 2.0 x 2.1 cm; R I = 0.54. Left ovary measures 2.3 x 2.2 x 1.6 cm; R I = 0.39. No pelvic fluid or adnexal mass lesion. IMPRESSION: 1. Retroverted uterus with small amount of endocervical fluid and mild prominence of the cervix is otherwise nonspecific. 2. Otherwise normal pelvic ultrasound. Normal ovaries. <Electronically signed by Tesfaye Wilder > 10/03/20 [id number]
== END ==
LOC: M WHC 15:50
PROVIDERS: ATTEND Advanced Practice Midwife
DX: N85.4 Malposition of uterus (principal); N92.1 Excessive and frequent menstruation with irregular cycle

== ENCOUNTER → 2020-12-31 | Outpatient (CLI) | payer OTHER ==
--- NOTE | 2020-12-31 17:12 | REPMRS ---
Patient History The patient states she has not had a clinical breast exam in over a year. Patient had first child at age 33. Family history of breast cancer under age 50 in mother, breast cancer under age 50 in paternal aunt. Took hormonal contraceptives for 3 years. Patient states no breast complaints. Patient has signed the MRS history sheet. Digital Woman Screen Mammo: December 31, 2020 - Exam #: [id number] Bilateral CC and MLO view(s) were taken. Technologist: Sabi Crabtree, Technologist Prior study comparison: July 06, 2017, digital woman screen mammo performed at [facility]. FINDINGS: The breast tissue is heterogeneously dense. This may lower the sensitivity of mammography. The Volpara volumetric breast density category is: C. There is a moderate amount of heterogeneously dense fibroglandular tissue which is fairly symmetric. There is no interval development of dominant mass, architectural distortion, or grouped microcalcification typical of malignancy. There has been no change in the appearance of the mammogram from the prior studies. 3-D tomosynthesis shows no additional findings. Assessment: BI-RADS/ACR category 1 mammogram. Negative Mammogram. Recommendation Breast MRI of both breasts in 6 months. Routine screening mammogram of both breasts in 1 year (for women over age 40). This patient's [facility] Lifetime Breast Cancer RIsk is estimated at 33.2 %. This mammogram was interpreted with the aid of an FDA-approved computer-aided dectection system. Electronically Signed By: Robert Pennington MD 12/31/20 1617
== END ==
LOC: M WHC 15:39
PROVIDERS: ATTEND Advanced Practice Midwife
DX: Z12.31 Encounter for screening mammogram for malignant neoplasm of breast (principal); Z80.3 Family history of malignant neoplasm of breast

== ENCOUNTER → 2021-02-05 | Outpatient (CLI) | payer OTHER ==
[~2021-02-05] MED LIST changes: +WELLTAB38 PO
== END ==
LOC: M LABSMTC 14:17
PROVIDERS: ATTEND Anesthesiology
DX: Z01.812 Encounter for preprocedural laboratory examination (principal); Z20.822 Contact with and (suspected) exposure to COVID-19

== ENCOUNTER 2021-02-10 07:05 | Day surgery (SDC) | payer OTHER ==
[~2021-02-10] VITALS: Ht 172.7 cm; Wt 63.9 kg
[~2021-02-10 07:05] MED LIST changes: +LIDOCAINE 1% MDV 20ML VIAL SQ PRN; +LR 1,000 ML IV ONE; +ceFAZolin SOD 2 GM in IV 1 EA IV ONE
[2021-02-10 07:39] LABS: HEMATOCRIT 39.7 % (36.0-47.0); HEMOGLOBIN 13.4 g/dl (12.0-15.5)
[2021-02-10 08:06] LABS: HCG, SERUM QUALITATIVE NEGATIVE (NEGATIVE)
[2021-02-10] MEDS ORDERED: LIDOCAINE 2% INJ 100 MG/5 ML SYRINGE As Ordered ONE (08:12)
[2021-02-10] MEDS ORDERED: propofoL 200 MG/20 ML VIAL As Ordered ONE (08:12)
[2021-02-10] MEDS ORDERED: ROCURONIUM BROMIDE 50 MG/5 ML VIAL As Ordered ONE ×3 (08:12→11:53)
[2021-02-10] MEDS ORDERED: ONDANSETRON 4MG/2ML VIAL As Ordered ONE (08:12)
[2021-02-10] MEDS ORDERED: dexameTHASONE 4 MG/ML 1ML VIAL (J1100 PER 1MG) As Ordered ONE (08:12)
[2021-02-10] MEDS ORDERED: MIDAZOLAM INJ 2MG/2ML VIAL (J2250 PER 1MG) As Ordered ONE (08:13)
[2021-02-10] MEDS ORDERED: fentaNYL 250 MCG/5 ML INJECTION (J3010) As Ordered ONE (08:13)
[2021-02-10] MEDS ORDERED: PHENYLephrine 500MCG 5ML (100MCG/ML) SYRINGE As Ordered ONE (08:23)
[2021-02-10] MEDS ORDERED: BUPIVACAINE HCL 0.25% 30ML VIAL As Ordered ONE (08:54)
[2021-02-10] MEDS ORDERED: IBUP80TA PO (09:04)
[2021-02-10] MEDS ORDERED: HYDR-3713 PO (09:04)
[2021-02-10] MEDS ORDERED: COLA100C5 PO (09:04)
[2021-02-10] MEDS ORDERED: ePHEDrine SULFATE 25 MG/5 ML(5MG/ML) SYRINGE As Ordered ONE (10:15)
[2021-02-10] MEDS ORDERED: ACETAMINOPHEN 1000MG 100ML IV BTL (OFIRMEV) (J0131 PER 10MG) As Ordered ONE (10:17)
[2021-02-10] MEDS ORDERED: KETOROLAC 60MG 2ML VIAL As Ordered ONE (10:29)
[2021-02-10] MEDS ORDERED: SUGAMMADEX SODIUM 500 MG/5 ML VIAL (BRIDION) As Ordered ONE (10:29)
[2021-02-10] MEDS ORDERED: HYDROmorphone HCL 2 MG/ML 1ML VIAL (J1170) As Ordered ONE (10:30)
[2021-02-10] MEDS ORDERED: METHYLENE BLUE 0.5% (5MG/ML) 10 ML AMP (PROVAYBLUE) As Ordered ONE (12:07)
[2021-02-10] MEDS ORDERED: HYDROMORPHONE HCL 0.5 MG/ 0.5 ML SYRINGE (J1170 PER 1) IV PRN (13:20)
[2021-02-10] MEDS ORDERED: ONDANSETRON 4MG/2ML VIAL IV PRN (13:20)
[2021-02-10] MEDS ORDERED: fentaNYL 100 MCG/2 ML INJECTION (J3010) IV PRN (13:20)
[2021-02-10] MEDS ORDERED: LR 1,000 ML IV SCH (13:20)
[2021-02-10 14:58] VITALS: BP 111/67
--- NOTE | 2021-02-11 12:23 | RO ---
OPERATIVE NOTE DATE OF OPERATION: 02/10/2021 PREOPERATIVE DIAGNOSIS: Abnormal uterine bleeding, heavy menstrual bleeding. POSTOPERATIVE DIAGNOSIS: Abnormal uterine bleeding, heavy menstrual bleeding. OPERATION PERFORMED: Laparoscopic-assisted vaginal hysterectomy, bilateral salpingectomy, cystoscopy. SURGEON: Helga Herman M.D. DOBBY LOOMS PEGGER: Les Paula DO ANESTHESIA: GETA INDICATION FOR OPERATION: Lauren is a 40-year-old, G3, P2-0-1-2, with a history of abnormal uterine bleeding, heavy menstrual bleeding with a normal workup but desiring definitive treatment with hysterectomy after counseling on all options for management of her bleeding. She had a prior tubal ligation done with section and had satisfied parity. MATERIAL FORWARDED TO THE LAB FOR EXAMINATION: Uterus with cervix and bilateral fallopian tubes. DESCRIPTION OF FINDINGS: The patient overall had a normal uterus with scarring between the uterus and bladder consistent with her prior section. Her fallopian tubes were interrupted from prior tubal ligation. Otherwise, the ovaries were normal in appearance. The anterior, posterior cul-de-sacs were normal in appearance as well as the liver edge. There was hemostasis along the vaginal cuff at the end of the procedure and postoperative cystoscopy showed jets from both of the ostia. INFECTION CLASSIFICATION: 2. ESTIMATED BLOOD LOSS: 50 mL. URINE OUTPUT: 200 mL. IV FLUIDS: 1200 mL of lactated Ringer's. DESCRIPTION OF OPERATION: The patient was taken to the operating room. Bilateral SCDs were placed. General endotracheal anesthesia was utilized. She was prepped and draped in normal sterile fashion in low lithotomy position. A timeout was performed to confirm patient name, date of , procedure and indication. The team was in agreement. She received 2g IV anceph prophylactically. A Rios catheter was placed. A bivalve speculum was placed in the vagina and the anterior lip of the cervix was grasped with a single-tooth tenaculum. A VCare uterine manipulator was introduced through the cervix to the fundus of the uterus after a stitch was placed on the anterior lip of the cervix using 0 Vicryl and that stitch was tied down to the VCare to keep it in place. Notably the uterus was retroverted and sounded to 10 cm. The single-tooth tenaculum had been removed with hemostasis noted at the tenaculum sites and the bivalve speculum was removed from the vagina as well. At that point, attention was turned to the abdomen where 1/4% Marcaine was used to provide anesthesia in the infraumbilical fold and then a 5 mm incision was made with the scalpel at the infraumbilical fold. Subcutaneous tissue was dissected down with the Jazmyne clamp and then a 5 mm trocar was placed with the lower abdominal wall manually grabbed and lifted up. The trocar was placed at a 90 degree angle. The laparoscope was advanced through the port and intra-abdominal placement was confirmed. There was no injury noted below the point of entry. Continuous flow carbon dioxide began to establish a pneumoperitoneum at 15 mmHg. At that point, pelvic and abdominal surveys were conducted beginning at the anterior cul-de-sac, posterior cul-de-sac and were normal in appearance. We performed salpingectomy first on the right fallopian tube and then on the left using the LigaSure device, excising just underneath the fallopian tube all the way to the uterus and the fallopian tubes were placed in the posterior cul-de-sac to be removed with the uterus later. At that point, the right broad ligament was transected using the LigaSure. We noted both of the ureters to have good vermiculation along the sidewalls. The utero-ovarian ligament was transected using the LigaSure and the anterior leaf of the broad ligament was opened and we attempted to skeletonize the uterine arteries. This was done with the LigaSure down to the level of the cup of the VCare encasing the cervix. We performed the right-sided portion of the bladder flap with the LigaSure and used traction to assist in this. The same process was then done on the left side and hemostasis was noted along all the pedicle lines. We then performed the colpotomy using the L-hook of the LigaSure device and we went circumferentially around the VCare cup and at that point, the specimen was free and there was no bleeding and so the uterus, cervix and fallopian tubes were removed vaginally and sent off to pathology. At that point, the patient was placed into high lithotomy position and a weighted speculum was placed in the vagina with good visualization of the anterior and posterior aspects of the vaginal cuff. The vaginal cuff was closed using interrupted 0 Vicryl sutures in [id number] starting on the left side and moving all the way to the right side, ensuring complete closure. At that point, cystoscopy was performed, completed in the usual routine fashion which showed bilateral ureteral jets. She had been given methylene blue prior and we noted methylene blue emanating from both of the ostia. The cystoscope was removed from the urethra and at that point, I irrigated the vagina and noted no bleeding along the vaginal cuff and then we re-gloved and went back up to the abdomen where we replaced the pneumoperitoneum and reevaluated the abdomen and pelvis which showed adequate hemostasis along all the pedicle lines. The lateral ports were removed under direct visualization followed by the umbilical port after letting out the pneumoperitoneum. Port sites were reapproximated with 3-0 Vicryl sutures underlying the incision and then Dermabond was placed to seal the incisions. Hemostasis was noted for all of the incisions. All counts were correct x2. The patient was awakened from general anesthesia and taken to the recovery room in stable condition. KASHIF
== END 2021-02-10 15:00 | disposition home or self-care (01) ==
LOC: M SDC 07:05
PROVIDERS: ATTEND Obstetrics & Gynecology
DX: N93.9 Abnormal uterine and vaginal bleeding, unspecified (principal); R00.0 Tachycardia, unspecified; F32.9 Major depressive disorder, single episode, unspecified; F41.9 Anxiety disorder, unspecified; Z79.899 Other long term (current) drug therapy
CPT/HCPCS: 36415; 58571; 84703; 85014; 85018; 86850; 86900; 86901; 88307; J0131; J0690; J1100; J1170; J1885; J2250; J2370; J2405; J3010; Q9968

== ENCOUNTER → 2021-07-16 | Outpatient (REF) | payer OTHER ==
[~2021-07-16] MED LIST changes: +COLA100C5 PO; +HYDR-3713 PO; -LIDOCAINE 1% MDV 20ML VIAL SQ PRN; -LR 1,000 ML IV ONE; +METH36TA5 PO; -ceFAZolin SOD 2 GM in IV 1 EA IV ONE
== END ==
LOC: M SFHCCLAY 09:04
PROVIDERS: ATTEND Physician Assistant
DX: R30.0 Dysuria (principal)

== ENCOUNTER → 2021-08-02 | Outpatient (CLI) | payer OTHER | LOC: M LABSMTC 12:27 | PROVIDERS: ATTEND Anesthesiology | DX: Z01.812 Encounter for preprocedural laboratory examination (principal); Z20.822 Contact with and (suspected) exposure to COVID-19 ==

== ENCOUNTER 2021-08-06 10:08 | Day surgery (SDC) | payer OTHER ==
[~2021-08-06] VITALS: Ht 172.7 cm; Wt 59.4 kg
[~2021-08-06 10:08] MED LIST changes: +ceFAZolin SOD 2 GM in IV 1 EA IV ONE
[2021-08-06 10:41] LABS: HEMATOCRIT 39.9 % (36.0-47.0); HEMOGLOBIN 13.6 g/dl (12.0-15.5); MEAN CORPUSCULAR HEMOGLOBIN 30.2 pg (27.0-33.0); MEAN CORPUSCULAR HGB CONC 34.1 g/dl (32.0-36.5); MEAN CORPUSCULAR VOLUME 88.7 fl (80.0-96.0); PLATELET COUNT, AUTOMATED 341 10^3/uL (150-450)
[2021-08-06] MEDS ORDERED: fentaNYL 100 MCG/2 ML INJECTION As Ordered ONE (11:23)
[2021-08-06] MEDS ORDERED: MIDAZOLAM INJ 2MG/2ML VIAL (J2250 PER 1MG) As Ordered ONE (11:23)
[2021-08-06] MEDS ORDERED: propofoL 200 MG/20 ML VIAL As Ordered ONE (11:24)
[2021-08-06] MEDS ORDERED: LIDOCAINE 2% 100MG/5ML SDV (FOR ANES.) As Ordered ONE (11:24)
[2021-08-06] MEDS ORDERED: BUPIVACAINE/EPIN 0.25% 30 ML VIAL As Ordered ONE (12:07)
[2021-08-06] MEDS ORDERED: SILVER NITRATE APPLICATOR As Ordered ONE (12:07)
[2021-08-06] MEDS ORDERED: CHLOROPROCAINE PRES. FREE 2% 20ML VIAL As Ordered ONE (12:29)
[2021-08-06] MEDS ORDERED: LR 1,000 ML IV ONE (12:35)
[2021-08-06] MEDS ORDERED: ACETAMINOPHEN 1000MG 100ML IV BTL (OFIRMEV) (J0131 PER 10MG) As Ordered ONE (12:57)
[2021-08-06] MEDS: MEPERIDINE INJ 25 MG/ML VIAL (J2175) IV PRN ×2 (13:25→13:30)
[2021-08-06] MEDS ORDERED: MEPERIDINE INJ 25 MG/ML VIAL (J2175) As Ordered ONE (13:25)
[2021-08-06] MEDS ORDERED: ONDANSETRON 4MG/2ML VIAL As Ordered ONE (14:01)
[2021-08-06] MEDS ORDERED: oxyCODONE 5MG TAB PO PRN (14:25)
[2021-08-06] MEDS ORDERED: LR 1,000 ML IV SCH ×2 (14:25→16:30)
[2021-08-06] MEDS ORDERED: fentaNYL 100 MCG/2 ML INJECTION IV PRN (14:25)
[2021-08-06 14:40] VITALS: BP 118/56
== END 2021-08-06 14:45 | disposition home or self-care (01) ==
LOC: M SDC 10:08
PROVIDERS: ATTEND Obstetrics & Gynecology
DX: N89.8 Other specified noninflammatory disorders of vagina (principal); R00.2 Palpitations; R01.1 Cardiac murmur, unspecified; I34.1 Nonrheumatic mitral (valve) prolapse; F41.9 Anxiety disorder, unspecified; F32.9 Major depressive disorder, single episode, unspecified; F90.0 Attention-deficit hyperactivity disorder, predominantly inattentive type; N18.9 Chronic kidney disease, unspecified; Z79.899 Other long term (current) drug therapy; Z90.710 Acquired absence of both cervix and uterus
CPT/HCPCS: 36415; 58999; 85027; 86850; 86900; 86901; 88304; J0131; J0690; J2175; J2250; J2400; J3010

== ENCOUNTER → 2021-08-26 | Outpatient (CLI) | payer OTHER ==
[~2021-08-26] MED LIST changes: +PROHANCE 279.3MG/ML 15ML VIAL As Ordered ONE; -ceFAZolin SOD 2 GM in IV 1 EA IV ONE
--- NOTE | 2021-08-26 11:46 | REP ---
INDICATION: SCREENING, HIGH RISK. COMPARISON: Mammogram 12/31/2020. TECHNIQUE: [facility] MRI imaging was performed with a dedicated breast coil. Axial, coronal, and sagittal T1 and T2 weighted scans were obtained with and without fat saturation in the usual fashion. The study includes dynamically acquired post gadolinium-enhanced imaging with image subtraction. Maximum intensity projection and multi planar reformation imaging is included as well. This study is interpreted with the aid of [employer], an FDA approved computer aided detection (CAD) software program, on a dedicated breast MRI workstation. The gadolinium enhancement dose is 11 mL of intravenous ProHance. FINDINGS: There is moderate fibroglandular tissue present bilaterally. There is no axillary adenopathy bilaterally. No significant cystic change is seen bilaterally. There is moderate background parenchymal enhancement bilaterally. I see no evidence of suspicious enhancing mass or morphologic abnormality. IMPRESSION: BI-RADS category 1, negative bilateral breast MRI. No evidence of suspicious enhancing mass or morphologic abnormality. Yearly supplemental screening MRI of the breasts is recommended for patients with an elevated lifetime risk of breast cancer of 20% or greater, in addition to annual screening mammography, staggered every 6 months. <Electronically signed by Prashant Reis > 08/26/21 [id number]
== END ==
LOC: M RAD 09:21
PROVIDERS: ATTEND Advanced Practice Midwife
DX: Z12.39 Encounter for other screening for malignant neoplasm of breast (principal)
CPT/HCPCS: 77049; A9576

== ENCOUNTER → 2022-01-28 | Outpatient (CLI) | payer OTHER ==
[~2022-01-28] MED LIST changes: -PROHANCE 279.3MG/ML 15ML VIAL As Ordered ONE
== END ==
LOC: M WHC 13:01
PROVIDERS: ATTEND Family Medicine
DX: Z12.31 Encounter for screening mammogram for malignant neoplasm of breast (principal); Z80.3 Family history of malignant neoplasm of breast

== ENCOUNTER → 2022-09-27 | Outpatient (REF) | payer OTHER ==
[2022-09-27 17:26] LABS: FREE T4 1.23 NG/DL (0.89-1.76); THYROID STIMULATING HORMONE 2.359 uIU/ML (0.55-4.78); TOTAL T3 117.6 NG/DL (60.0-181.0)
== END ==
LOC: M SFHCCLAY 14:27
PROVIDERS: ATTEND Family Medicine
DX: R23.2 Flushing (principal)

== ENCOUNTER → 2022-12-06 | Outpatient (CLI) | payer OTHER ==
[~2022-12-06] MED LIST changes: +PROHANCE 279.3MG/ML 15ML VIAL ONE
== END ==
LOC: M PLAIMG 14:33
PROVIDERS: ATTEND Family Medicine
DX: Z12.39 Encounter for other screening for malignant neoplasm of breast (principal); Z80.3 Family history of malignant neoplasm of breast
CPT/HCPCS: 77049; A9576

== ENCOUNTER → 2024-02-05 | Outpatient (REF) | payer OTHER ==
[~2024-02-05] MED LIST changes: -PROHANCE 279.3MG/ML 15ML VIAL ONE
[2024-02-05 18:09] LABS: ALBUMIN 4.6 G/DL (3.2-5.2); ALKALINE PHOSPHATASE 119 U/L (46-116); ALT/SGPT 31 U/L (7.0-40); AST/SGOT 15 U/L (<34); BILIRUBIN,TOTAL 0.3 MG/DL (0.3-1.2); BLOOD UREA NITROGEN 13 MG/DL (9-23); CALCIUM LEVEL 9.8 MG/DL (8.5-10.1); CARBON DIOXIDE LEVEL 27 MMOL/L (20-31); CHLORIDE LEVEL 103 MMOL/L (98-107); CHOLESTEROL LEVEL 199 MG/DL (<200); CHOLESTEROL RISK RATIO 4.17 (<5); CREATININE FOR GFR 0.79 MG/DL (0.55-1.30); FREE T4 1.12 NG/DL (0.89-1.76); GLOMERULAR FILTRATION RATE > 60.0 (>58); GLUCOSE, FASTING 101 MG/DL (60-100); HDL CHOLESTEROL 47.7 MG/DL (>40); LDL CHOLESTEROL 127.7 MG/DL (<100); NON-HDL-C 151.3 MG/DL; POTASSIUM SERUM 4.3 MMOL/L (3.5-5.1); SODIUM LEVEL 136 MMOL/L (136-145); THYROID STIMULATING HORMONE 2.232 uIU/ML (0.55-4.78); TOTAL PROTEIN 7.6 G/DL (5.7-8.2); TOTAL T3 107.7 NG/DL (60.0-181.0); TRIGLYCERIDES LEVEL 118 MG/DL (<150)
== END ==
LOC: M SFHCCLAY 14:46
PROVIDERS: ATTEND Family Medicine
DX: R63.5 Abnormal weight gain (principal); E78.2 Mixed hyperlipidemia

== ENCOUNTER → 2024-07-04 | Outpatient (CLI) | payer OTHER | LOC: M WHC 15:00 | PROVIDERS: ATTEND Family Medicine | DX: Z12.31 Encounter for screening mammogram for malignant neoplasm of breast (principal); Z80.3 Family history of malignant neoplasm of breast; R92.333 Mammographic heterogeneous density, bilateral breasts; N63.42 Unspecified lump in left breast, subareolar ==

== ENCOUNTER → 2024-08-05 | Outpatient (CLI) | payer OTHER | LOC: M WHC 15:13 | PROVIDERS: ATTEND Family Medicine | DX: R92.8 Other abnormal and inconclusive findings on diagnostic imaging of breast (principal); Z80.3 Family history of malignant neoplasm of breast; N63.41 Unspecified lump in right breast, subareolar ==